=== PATIENT | male | born 1985 | race Caucasian/White ===

== ENCOUNTER 2016-10-20 05:44 | Emergency (ER) | payer BC ==
[~2016-10-20] VITALS: Ht 185.4 cm; Wt 102.5 kg
[~2016-10-20 05:44] MED LIST: AMOX875 PO; HYDR-3533 PO
[2016-10-20 05:52] VITALS: BP 149/97; PULSE 58; RESP 18; TEMP 98.1; O2SAT 100
[2016-10-20] MEDS ORDERED: AMOX500T PO (06:18)
[2016-10-20] MEDS ORDERED: IBUP800T23 PO (06:18)
[2016-10-20] MEDS ORDERED: HYDR-3583 PO (06:19)
--- NOTE | 2016-10-20 06:40 | PD ---
HPI Chief Complaint: Oral / Dental Pain or Problem Time Seen by Provider: 06:33 Travel History International Travel<30 days: No Contact w/Intl Traveler<30days: No Traveled to known affect area: No History of Present Illness HPI 31-year-old male presents to the emergency department for complaint of dental pain to the #4 tooth. Patient was just seen on Friday by his dentist and prescribed Motrin and amoxicillin and hydrocodone. Patient states he has been told that he must go to an oral surgeon to have dental extraction of the tooth. Patient states that medications are not providing any relief. Patient denies other concerns or complaints. Patient is not diabetic. Patient has not attempted dental paraffin. Pain is 10 over 10 intensity. PFSH Past Medical History Narrative Medical Dental disease, dental extraction, tobacco use alcohol use; nursing notes reviewed Diabetes: No Diminished Hearing: No Immune Disorder: No Influenza Vaccination: No Past Surgical History Surgical History: No Previous Surgery Social History Alcohol Use: Yes (OCC) Tobacco Use: Yes (07/17ppd) Substance Use: No Allergies-Medications (Allergen,Severity, Reaction): Coded Allergies: No Known Allergies (Unverified , 10/20/16) Reported Meds & Prescriptions Reported Meds & Active Scripts Active Reported Hydrocodone-Acetaminophen 10-325 mg Tab 1 Tab PO Q4H PRN Ibuprofen 800 Mg Tab 800 Mg PO Q6HR PRN Amoxicillin 500 Mg Tab 500 Mg PO BID Review of Systems Except as stated in HPI: all other systems reviewed are Neg Physical Exam Narrative GENERAL: Well-developed well-nourished male in no acute distress no respiratory distress SKIN: Warm and dry. HEAD: Normocephalic. EYES: No scleral icterus. No injection or drainage. ENT: Mucous membranes moist airway is patent no gingival edema or fluctuance #4 tooth shows evidence of deformity somewhat consistent with possible cusp fracture. Other dentition intact. NECK: Supple, trachea midline. No JVD or lymphadenopathy. CARDIOVASCULAR: Regular rate and rhythm without murmurs, gallops, or rubs. RESPIRATORY: Breath sounds equal bilaterally. No accessory muscle use. Data Data Last Documented VS Vital Signs Date Time Temp Pulse Resp B/P Pulse Ox O2 Delivery O2 Flow Rate FiO2 10/20/16 06:14 20 10/20/16 05:52 98.1 58 149/97 100 Orders Oxycodone-Acetamin 7.5-325 Mg (Percocet (10/20/16 06:45) Ketorolac Inj (Toradol Inj) (10/20/16 06:45) MDM Medical Decision Making Medical Screen Exam Complete: Yes Emergency Medical Condition: Yes Medical Record Reviewed: Yes Differential Diagnosis Dentalgia, dental fracture, dental abscess, apical abscess Narrative Course Patient offered a dose of oxycodone injection of Toradol and encouraged to follow-up with his oral surgeon. Diagnosis Primary Impression: Dentalgia Referrals: Dentist 1 day Patient Instructions: Narcotic given in the ED Additional Instructions: Continue current medications Use dental paraffin Return to the emergency department as needed Follow-up with dentist Disposition: 01 DISCHARGE HOME Condition: Stable Deb Pinto MD Oct 20, 2016 06:40
[2016-10-20] MEDS ORDERED: oxyCODONE/ACETAMINOPHEN 7.5 MG/325 MG TAB PO ONE (06:45)
[2016-10-20] MEDS ORDERED: KETOROLAC TROMETHAMINE 60 MG/2 ML (IM) VIAL IM ONE (06:45)
[2016-10-20 07:02] VITALS: BP 137/76
== END 2016-10-20 07:04 | disposition home or self-care (01) ==
LOC: PHED 05:44
DX: K08.89 Other specified disorders of teeth and supporting structures (principal); F17.200 Nicotine dependence, unspecified, uncomplicated
CPT/HCPCS: 96372; 99282; J1885